=== PATIENT | female | born 1955 | race Caucasian/White ===

== ENCOUNTER 2019-12-20 10:44 | Outpatient (CLI) | payer MEDICAID, SELFPAY ==
[2019-12-20 11:36] LABS: Free T4 Free Thyroxine 1.15 ng/dL (0.82-1.77)
[2019-12-24 00:02] LABS: Tissue Transglutaminase IgA Ab <1 U/mL; Tissue transglutaminase Ab.IgG 2 U/mL
[2019-12-25 05:57] LABS: Immunoglobulin A 275 mg/dL (70-320)
[2019-12-26 22:32] LABS: Gliadin Ab.IgA 10 U (<20); Gliadin Ab.IgG 3 U (<20)
== END 2019-12-20 10:45 | disposition home or self-care (01) ==
LOC: LAB 10:45
PROVIDERS: Visit Provider Internal Medicine
DX: E03.9 Hypothyroidism, unspecified (principal); E11.9 Type 2 diabetes mellitus without complications; E66.01 Morbid (severe) obesity due to excess calories; Z68.42 Body mass index [BMI] 45.0-49.9, adult; K90.9 Intestinal malabsorption, unspecified
CPT/HCPCS: 82784; 83516; 84439; 99204

== ENCOUNTER → 2020-02-19 13:18 | Outpatient (BNVA) | payer MEDICAID, SELFPAY | PROVIDERS: Visit Provider Internal Medicine | DX: E03.9 Hypothyroidism, unspecified (principal); E11.9 Type 2 diabetes mellitus without complications; E66.01 Morbid (severe) obesity due to excess calories; Z68.42 Body mass index [BMI] 45.0-49.9, adult; E78.5 Hyperlipidemia, unspecified | CPT/HCPCS: 99214 ==

== ENCOUNTER 2020-02-19 14:02 | Outpatient (CLI) | payer MEDICAID, SELFPAY ==
[2020-02-19 15:32] LABS: Chol HDL Ratio 5.05 mg/dL (0.0-4.40); Cholesterol 222 mg/dL (0-200); Free T4 Free Thyroxine 0.64 ng/dL (0.82-1.77); HDL Cholesterol 44 mg/dL (60-100); LDL Cholesterol Calculated 130 mg/dL (50-129); LDL HDL Ratio 2.95 RATIO (0.00-3.22); Triglycerides 239 mg/dL (0-150)
[2020-02-19 16:40] LABS: Estmated Average Glucose 128; Hemoglobin A1C 6.1 % (4.0-6.0)
== END 2020-02-19 14:03 | disposition home or self-care (01) ==
LOC: LAB 14:06
PROVIDERS: PCP Family Medicine; Visit Provider Internal Medicine
DX: E11.9 Type 2 diabetes mellitus without complications (principal); E03.9 Hypothyroidism, unspecified; E78.5 Hyperlipidemia, unspecified
CPT/HCPCS: 36415; 80061; 83036; 84439; 84443

== ENCOUNTER → 2020-03-14 10:07 | Outpatient (BNVA) | payer MEDICAID, SELFPAY | PROVIDERS: PCP Family Medicine; Visit Provider Internal Medicine | DX: Z20.828 Contact with and (suspected) exposure to other viral communicable diseases (principal); Z01.818 Encounter for other preprocedural examination | CPT/HCPCS: 87635 ==

== ENCOUNTER 2020-03-21 08:40 | Day surgery (SDC) | payer MEDICAID, SELFPAY ==
[2020-03-19 14:14] VITALS: BMI 49.9
[2020-03-21 09:09] VITALS: BP 173/105; PULSE 86; RESP 18; TEMP 36.3; O2SAT 99
--- NOTE | 2020-03-21 09:18 | W.PM.OPSUD ---
Surgery/Procedure H&P Update DATE OF PROCEDURE: March 21, 2020 DATE H&P PERFORMED: 03/10/20 PLANNED PROCEDURE: Operation Date: 03/21/20 09:00 Proposed Procedures p EGD 66464 K21.9(Not Applicable) - Alfonso Henriquez MD
[2020-03-21] MEDS: sodium chloride 0.9% 1,000 ML 30 ML IV (09:28)
--- NOTE | 2020-03-21 10:10 | ANES.PREANE2 ---
Pre-Anesthetic Assessment Pre-Anesthetic Assessment: Height/Weight: Height 1.6 m Weight 127.913 kg Temp Pulse Resp BP Pulse Ox 97.3 F L 86 18 173/105 99 03/21/20 09:09 03/21/20 09:09 03/21/20 09:09 03/21/20 09:09 03/21/20 09:09 Preop Diagnosis: GERD Proposed Procedure: Operation Date: 03/21/20 09:00 Proposed Procedures p EGD 85342 K21.9(Not Applicable) - Alfonso Henriquez MD Last intake: Intake Last Liquid Date 03/20/20 Last Liquid Time 20:30 Last Solid Date 03/20/20 Last Solid Time 15:30 Exam: Pre-Anes Outpt Exam: alert and oriented x 3 Airway: Submandibular: WNL Cervical ROM: WNL Dentition: Full Pulmonary: Pulmonary: None reported CV/HEM: CV/HEM: Arrythmia Comments: patient states irregular heart rhythm intermittently 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 : : None reported Hepatic: Hepatic: None reported GI: GI: GERD and Hiatus hernia Metabolic: Metabolic: DM Comments: PRE-DIABETIC Musc/skel: Musc/skel: None reported Neuropsych: Neuropsych: Seizure Comments: patient states she has had seizures in the past describes it as absent seizures doesnt remember the last seizure she has had. Denies taking medication for seizure activity. Anesthetic Plan: ASA status: 3 Anesthesia: Anesthesia Evaluation and MAC Risk of > 500 ml blood loss (7ml/kg in children): No Meds/Allergies Current Medications: Current Medications Generic Name Dose Route Start Last Admin Trade Name Freq PRN Reason Stop Dose Admin Sodium Chloride 1,000 mls @ 30 ml s/hr 03/21/20 09:00 03/21/20 09:28 Sodium Chloride 0.9% IV 03/22/20 08:59 30 mls/hr .Q24H DONITA Administration PFSH Anesthesia PFSH: Medical History (Updated 03/10/20 @ 15:27 by Alfonso Henriquez MD) Anxiety Depression History of goiter History of pulmonary embolism PE in 2014. Hypertension Hypothyroidism PTSD (post-traumatic stress disorder) Surgical History H/O thyroidectomy H/O tubal ligation History of cholecystectomy Hx of appendectomy Family History Father CAD (coronary artery disease) Cancer prostate Mother CAD (coronary artery disease) Diabetes Sister Cancer Brother Diabetes Social History (Updated 03/10/20 @ 15:[address]) Smoking and tobacco status: never smoked Alcohol intake: never History of recent travel: No Data Anesthesia Cardiac Studies: No Data to Display
[2020-03-21 10:27] VITALS: BP 149/101; PULSE 69; RESP 16; TEMP 36.2; O2SAT 96
--- NOTE | 2020-03-21 10:36 | ANE.PACU2 ---
Inpatient post-anesthesia follow up: Airway intact: Yes Vital signs: Temperature 97.1 F Pulse Rate 69 Respiratory Rate 16 Blood Pressure 149/101 Pulse Oximetry 96 Oxygen Delivery Me thod Room Air Oxygen Flow Rate Fraction of Inspir ed Oxygen Hydration adequate: Yes Nausea and vomiting: No Mental status: Baseline
[2020-03-21 10:45] VITALS: BP 135/75; PULSE 73; RESP 16; O2SAT 99
[2020-03-24 09:24] LABS: H. Pylori / CLO Test Negative
== END 2020-03-21 11:00 | disposition home or self-care (01) ==
PROVIDERS: PCP Family Medicine; Visit Provider Internal Medicine
PROC: 0DJ08ZZ Inspection of Upper Intestinal Tract, Via Natural or Artificial Opening Endoscopic (ICD-10-PCS; CPT 43235; principal; 2020-03-21 09:00)
DX: K21.9 Gastro-esophageal reflux disease without esophagitis (principal); K44.9 Diaphragmatic hernia without obstruction or gangrene; K29.70 Gastritis, unspecified, without bleeding; Z86.711 Personal history of pulmonary embolism; F41.9 Anxiety disorder, unspecified; F32.9 Major depressive disorder, single episode, unspecified; I10 Essential (primary) hypertension; E03.9 Hypothyroidism, unspecified; E11.9 Type 2 diabetes mellitus without complications
CPT/HCPCS: 12345; 43239; 87077; J7030

== ENCOUNTER → 2020-06-04 08:36 | Outpatient (BNVA) | payer MEDICAID, SELFPAY | PROVIDERS: PCP Family Medicine; Referring Provider Nurse Practitioner Family; Visit Provider Internal Medicine | DX: E03.9 Hypothyroidism, unspecified (principal); E11.9 Type 2 diabetes mellitus without complications; E66.01 Morbid (severe) obesity due to excess calories; Z68.42 Body mass index [BMI] 45.0-49.9, adult; E78.5 Hyperlipidemia, unspecified; K44.9 Diaphragmatic hernia without obstruction or gangrene | CPT/HCPCS: 99214 ==

== ENCOUNTER 2020-07-09 09:04 | Outpatient (CLI) | payer MEDICAID, SELFPAY ==
--- NOTE | 2020-07-09 09:38 | FL_ITS ---
WS: [id number] DOUBLE CONTRAST UPPER GI EXAMINATION HISTORY: K21.9 - Gastro-esophageal reflux disease without esophagitis COMPARISON: None available. FLUOROSCOPY TIME: 2.3 minutes. Barium mixture traversed normally throughout the esophagus. No filling defects within the stomach. Du odenal bulb was normally distensible and pliable. No gastroesophageal reflux. Moderate size hiatal hernia was visualized with the patient supine. No reflux was demonstrated. FL/FL upper GI w air* [id number] IMPRESSION: Moderate sized reducible hiatal hernia demonstrated during supine position.
== END 2020-07-09 09:05 | disposition home or self-care (01) ==
LOC: RADWPI 09:05
PROVIDERS: PCP Family Medicine; Visit Provider Surgery
DX: K21.9 Gastro-esophageal reflux disease without esophagitis (principal); K44.9 Diaphragmatic hernia without obstruction or gangrene
CPT/HCPCS: 74246

== ENCOUNTER → 2021-01-05 11:03 | Outpatient (BNVA) | payer MEDICAID, SELFPAY | PROVIDERS: PCP Family Medicine; Referring Provider Nurse Practitioner Family; Visit Provider Internal Medicine Cardiovascular Disease | DX: I50.33 Acute on chronic diastolic (congestive) heart failure (principal); R06.02 Shortness of breath; Z79.01 Long term (current) use of anticoagulants; I10 Essential (primary) hypertension; E78.5 Hyperlipidemia, unspecified; E11.9 Type 2 diabetes mellitus without complications; E03.9 Hypothyroidism, unspecified; E66.01 Morbid (severe) obesity due to excess calories; Z68.42 Body mass index [BMI] 45.0-49.9, adult; Z86.711 Personal history of pulmonary embolism | CPT/HCPCS: 80048; 83880; 85025 ==

== ENCOUNTER 2021-04-06 08:35 | Emergency (ER) | payer MEDICAID, SELFPAY ==
[2021-04-06 08:36] VITALS: BP 99/72; PULSE 93; RESP 18; TEMP 37.1; O2SAT 96; BMI 46.9
[2021-04-06 08:42] VITALS: BP 99/72; PULSE 93; RESP 18; TEMP 37.1; O2SAT 96
--- NOTE | 2021-04-06 08:42 | XRR_ITS ---
PROCEDURE INFORMATION: Exam: XR Chest Exam date and time: 04/06/2021 8:42 AM Age: 66 years old Clinical indication: Angina pectoris; Patient HX: Chest pain since this morning. Sharp pains to the right of the sternum. PT states that even when she lifts her arm it causes the pain to increase TECHNIQUE: Imaging protocol: XR of the chest. Views: 1 view. COMPARISON: RF FL upper GI w air* [id number] 07/09/2020 9:42 AM FINDINGS: Lungs: Unremarkable. No consolidation. Pleural spaces: Unremarkable. No pleural effusion. No pneumothorax. Heart/Mediastinum: Unremarkable. No cardiomegaly. Bones/joints: Unremarkable. XR/XR chest 1V portable [id number] IMPRESSION: No acute findings.
--- NOTE | 2021-04-06 08:42 | ECG_ITS ---
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 Measurements Intervals [place] Rate: 86 P: 55 GA: 171 QRS: 19 QRSD: 100 T: 54 QT: 354 QTc: 426 Interpretive Statements SINUS RHYTHM LOW QRS VOLTAGE IN PRECORDIAL LEADS [QRS DEFLECTION < 1.0 mV IN CHEST LEADS] POSSIBLE RIGHT VENTRICULAR CONDUCTION DELAY [RSR (QR) IN V1/V2] No previous ECG available for comparison Electronically Signed On 04-06-2021 20:51:46 CONTAINER REPAIRER by Loreta Rider M.D. [id number]
[2021-04-06 08:57] LABS: Basophils % 0.2 %; Eosinophils # 0.1 10^3/uL (0.0-0.8); Eosinophils % 0.8 %; Hematocrit 37.5 % (37.0-47.0); Hemoglobin 11.8 g/dL (11.5-15.3); Lymphocytes # 2.2 10^3/uL (0.8-4.8); Lymphocytes % 24.1 %; Mean Corpuscular HGB Conc 31.5 g/dL (30.0-36.0); Mean Corpuscular Hemoglobin 28.8 pg (28.0-34.0); Mean Corpuscular Volume 91.5 fl (81-99); Mean Platelet Volume 11.8 fL (7.4-10.4); Monocytes # 0.5 10^3/uL (0.2-0.9); Monocytes % 5.9 %; Neutrophils % 68.4 %; Nucleated Red Blood Cells % 0 %; Platelet Count 326 10^3/cmm (130-400); Red Cell Distribution Width 14.2 % (12.1-15.1); White Blood Count 9.1 10^3/uL (4.0-10.0)
[2021-04-06 09:19] LABS: Alanine Aminotransferase 13 U/L (0-33); Albumin Level 3.9 g/dL (3.5-5.2); Alkaline Phosphatase 44 IU/L (35-105); Aspartate Amino Transferase 19 U/L (0-32); Blood Urea Nitrogen 16 mg/dL (8-23); Calcium 9.1 mg/dL (8.5-10.5); Carbon Dioxide 22 mmol/L (22-29); Chloride 102 mmol/L (98-107); Creatine Phosphokinase 34 U/L (26-192); Globulin 2.8 g/dL (1.3-4.6); Glomerular Filtration Rate 62.8 mL/min (90-130); Glucose 160 mg/dL (65-115); Osmolality Calculated 293 mOsm/kg (285-295); Sodium 139 mmol/L (136-145); Total Bilirubin 0.4 mg/dL (0.15-1.2); Total Protein 6.7 g/dL (6.6-8.7)
[2021-04-06 09:21] LABS: Anion Gap 19.4 (5-19); Potassium 4.4 mmol/L (3.5-5.1)
[2021-04-06 09:22] LABS: Troponin(5th) Baseline 8 ng/L (0-10)
[2021-04-06 09:24] VITALS: BP 104/83; PULSE 86; PULSE 88; RESP 20; O2SAT 96
--- NOTE | 2021-04-06 09:29 | ED_ITS ---
HPI - Chest Pain General: Chief Complaint: Chest Pain Stated Complaint: CHEST PAIN Time Seen by Provider: 04/06/21 08:36 History of Present Illness: HPI narrative: 66-year-old female presents emergency room complaining of right-sided chest pain that woke her up from sleep this morning. She is not had any difficulty with breathing. She has no known history of heart disease does have history of hypertension she describes it sounds like she may have had some heart failure in the past although she states she never had any bypass or stenting. Began around 6:00 this morning the right breast does not really radiate anywhere. It is very reproducible with palpation even just to auscultation on her chest reproduces the pain. She does have a history of DVT PE she is currently taking Xarelto has not missed any doses change medicines or run out of her medications lately. Pharmacy review with the her refills and talking to the patient it becomes apparent that she is not regularly taking her Xarelto. It has not been refilled since November and she has 15 tablets left in her bottle. MD complaint: chest pain Pertinent past history: other (Previous DVT/PE) Onset (ago): day(s) Timing of current episode: episodic Prior episodes: Yes Onset: during rest Pain location: left chest Pain radiation: none Severity: mild Quality: aching and heaviness Relieving factors: nothing Exacerbating factors: nothing Associated symptoms: Deny abdominal pain, diaphoresis, dyspnea, fever(s), leg edema, nausea, palpitations, sense of impending doom, syncope or vomiting Treatment prior to arrival: none Review of Systems Const: Denies: fever(s) or diaphoresis ENMT: Denies: throat pain, ear or mastoid pain, nasal discharge or nasal congestion Card: Denies: palpitations or syncope Resp: Denies: dyspnea GI: Denies: abdominal pain, nausea or vomiting : Denies: flank pain, difficulty voiding, dysuria, urinary frequency or urinary urgency Skin/Breast: Denies: rash or pruritus PFSH ED PFSH: Medical History Anxiety Benign hypertension CKD (chronic kidney disease) Depression History of goiter History of pulmonary embolism PE in 2014. Hypertension Hypothyroidism PTSD (post-traumatic stress disorder) Surgical History H/O thyroidectomy H/O tubal ligation History of cholecystectomy Hx of appendectomy Family History Father CAD (coronary artery disease) Cancer prostate Diabetes Mother CAD (coronary artery disease) Diabetes Stroke Sister Cancer CAD (coronary artery disease) Brother Diabetes CAD (coronary artery disease) Denies family history of Clotting disorder Dementia Chronic kidney disease (CKD) Suicide Anesthesia complication Bleeding disorder Lung disease Social History Smoking and tobacco status: never smoked Alcohol intake: never History of recent travel: No Physical Exam Const: COMMON NORMALS: no acute distress GENERAL APPEARANCE: cooperative and comfortable ORIENTATION/CONSCIOUSNESS: Yes awake, Yes oriented to person, Yes oriented to place and Yes oriented to time HENMT: COMMON NORMALS: normocephalic, atraumatic and hearing grossly normal bilaterally HEAD & SCALP: normocephalic and atraumatic Neck/C-Spine: COMMON NORMALS: no JVD Chest: OTHER: chest [ain reproducible by palpation Resp: COMMON NORMALS: normal respiratory effort, No retractions, No use of accessory muscles and clear to auscultation bilaterally AUSCULTATION: clear to auscultation bilaterally Cardio: COMMON NORMALS: no JVD, regular rate, regular rhythm and No murmurs present (Cardio) RATE: regular rate RHYTHM: regular rhythm GI: COMMON NORMALS: Soft to palpation and No hepatosplenomegaly present A USCULTATION: Yes normoactive bowel sounds PALPATION: Yes Soft to palpation, No Tenderness to palpation present (GI), No Guarding due to palpation present (GI) and Yes No hepatosplenomegaly present Extremity: COMMON NORMALS: normal to inspection, capillary refill normal, no clubbing, cyanosis or edema, no calf tenderness and no pedal edema Neuro: SENSORIUM/ORIENTATION: Yes oriented to person, Yes oriented to place and Yes oriented to time Skin: COMMON NORMALS: no rashes or lesions noted GENERAL SKIN EXAM: no rashes or lesions noted Course Vital Signs: Vital signs: Vital Signs Temperature 98.7 F 04/06/21 08:42 Pulse Rate 91 04/06/21 13:06 Respiratory Rate 14 04/06/21 13:06 Blood Pressure 143/90 04/06/21 13:06 Pulse Oximetry 98 04/06/21 13:06 MDM - Chest Pain MDM Narrative: Medical decision making narrative: Labs imaging and EKG reviewed on the chart. We did CTA her chest was concerned because pharmacy did review of her medicines [facility] had not been filling her anticoagulant since November 2020. Reviewed this whether endorsed the importance of taking the medicine regularly we will discharge her home diclofenac to use as needed follow-up with primary care doctor return if she has any worsening or change symptoms Lab Data: Labs: Lab Results 04/06/21 04/06/21 04/06/21 08:44 08:44 08:44 WBC 9.1 10^3/uL 10^3/ uL (4.0-10.0) RBC 4.10 10^6/uL 10^6 /uL (4.1-5.3) Hgb 11.8 g/dL g/dL (11.5-15.3) Hct 37.5 % % (37.0-47.0) MCV 91.5 fl fl (81-99) MCH 28.8 pg pg (28.0-34.0) MCHC 31.5 g/dL g/dL (30.0-36.0) RDW 14.2 % % (12.1-15.1) Plt Count 326 10^3/cmm 10^3 /cmm (130-400) MPV 11.8 fL H fL (7.4-10.4) Neut % (Auto) 68.4 % % Lymph % (Auto) 24.1 % % [place] % (Auto) 5.9 % % Eos % (Auto) 0.8 % % Baso % (Auto) 0.2 % % Neut # (Auto) 6.20 10^3/uL 10^3 /uL (1.8-7.7) Lymph # (Auto) 2.2 10^3/uL 10^3/ uL (0.8-4.8) [place] # (Auto) 0.5 10^3/uL 10^3/ uL (0.2-0.9) Eos # (Auto) 0.1 10^3/uL 10^3/ uL (0.0-0.8) Baso # (Auto) 0.0 10^3/uL 10^3/ uL (0.0-0.1) Nucleated RBC % (a uto) 0 % % Nucleated RBCs # 0.0 /100WBC /100W BC Sodium 139 mmol/L mmol/L (136-145) Potassium 4.4 mmol/L mmol/L (3.5-5.1) Chloride 102 mmol/L mmol/L (98-107) Carbon Dioxide 22 mmol/L mmol/L (22-29) Anion Gap 19.4 H (5-19) BUN 16 mg/dL mg/dL (8-23) Creatinine 0.9 mg/dL mg/dL (0.5-0.9) GFR Calculation 62.8 mL/min L mL/ min (90-130) Glucose 160 mg/dL H mg/dL (65-115) Calculated Osmolal ity 293 mOsm/kg mOsm/ kg (285-295) Calcium 9.1 mg/dL mg/dL (8.5-10.5) Total Bilirubin 0.4 mg/dL mg/dL (0.15-1.2) AST 19 U/L U/L (0-32) ALT 13 U/L U/L (0-33) Alkaline Phosphata se 44 IU/L IU/L (35-105) Creatine Kinase 34 U/L U/L (26-192) Troponin T Baselin e 8 ng/L ng/L (0-10) Troponin T 120 Min [place] Troponin T Total Protein 6.7 g/dL g/dL (6.6-8.7) Albumin 3.9 g/dL g/dL (3.5-5.2) Globulin 2.8 g/dL g/dL (1.3-4.6) 04/06/21 11:05 WBC RBC Hgb Hct MCV MCH MCHC RDW Plt Count MPV Neut % (Auto) Lymph % (Auto) [place] % (Auto) Eos % (Auto) Baso % (Auto) Neut # (Auto) Lymph # (Auto) [place] # (Auto) Eos # (Auto) Baso # (Auto) Nucleated RBC % (a uto) Nucleated RBCs # Sodium Potassium Chloride Carbon Dioxide Anion Gap BUN Creatinine GFR Calculation Glucose Calculated Osmolal ity Calcium Total Bilirubin AST ALT Alkaline Phosphata se Creatine Kinase Troponin T Baselin e Troponin T 120 Min [place] 6.00 ng/L ng/L (0-10) [place] Troponin T -2.00 ABS# L ABS# (0-10) Total Protein Albumin Globulin Discharge Plan Discharge Patient Disposition: Home Clinical Impression: Acute chest wall pain, Hx of deep venous thrombosis Condition: Stable Prescriptions: New diclofenac sodium 75 mg tablet,delayed release (DR/EC) 75 mg PO Q12H PRN (Reason: pain) Qty: 20 RF: 0 No Action loratadine 10 mg capsule 10 mg PO DAILY RF: 0 desvenlafaxine succinate [Pristiq] 100 mg tablet extended release 24 hr 100 mg PO QAM RF: 0 ropinirole 0.5 mg tablet 0.5 mg PO BEDTIME RF: 0 fluticasone propionate 50 mcg/actuation spray,suspension 2 spray INTRANASAL QAM RF: 0 Xarelto 20 mg tablet 20 mg PO QAM RF: 0 topiramate [Topamax] 100 mg tablet 100 mg PO QAM RF: 0 polyethylene glycol 3350 [Miralax] 17 gram powder in packet 17 gm PO QAM RF: 0 atorvastatin [Lipitor] 40 mg tablet 40 mg PO QAM RF: 0 lisinopril 10 mg tablet 10 mg PO QAM RF: 0 hydrochlorothiazide 25 mg tablet 25 mg PO QAM RF: 0 levothyroxine 300 mcg tablet See Rx Instructions .ROUTE .COMPLEX RF: 0 pantoprazole 40 mg tablet,delayed release (DR/EC) 80 mg PO QAM RF: 0 levothyroxine 50 mcg tablet 100 mcg PO .ON SAT AND SUN RF: 0 nystatin 100,000 unit/gram cream 1 applic TOPICAL BID PRN (Reason: Rash) RF: 0 bupropion HCl 75 mg tablet 75 mg PO BID RF: 0 ProAir HFA 90 mcg/actuation Hfa Aerosol Inhaler 2 puff INHALATION QID PRN (Reason: Shortness Of Breath) RF: 0 hydroxyzine pamoate 25 mg capsule 25 mg PO BEDTIME RF: 0 Discharge Orders: Discharge ED (Routine); Ordered 04/06/21 Ordered By: Steffen Mccarthy Referrals: Joyce Robin MD [Primary Care Provider] - Discharge Diet: Usual diet Discharge Activity: Resume usual activity Patient Instructions: Opioid Safety Activity Restrictions/Additional Instructions: Anti-inflammatories for acute anterior chest wall pain. Encourage to take your Xarelto regularly. Coding Level of Care Code ED Lead Machinist for Jimbo Sanchez
--- NOTE | 2021-04-06 09:32 | CT_ITS ---
WS: [id number] CT CHEST ANGIOGRAPHY WITH REFORMATS HISTORY: hx PE, chest pain not taking anticoagulants TECHNIQUE: Contiguous axial images are obtained through the chest during arterial injection of intrav enous contrast. Images are reconstructed to evaluate the pulmonary arteries. MIP imaging also reviewe d. All CT scans at [facility] use at least one of these dose optimization techniques: automat ed exposure control; mA and/or kV adjustment per patient size (includes targeted exams where dose is matched to clinical indication); or iterative reconstruction. CONTRAST: Omnipaque 350; 95 mL IV. DLP: 582.56 mGy.cm COMPARISON: None available. Suboptimal opacification of the pulmonary arteries. No central filling defects. The opacification is heterogeneous due to the bolus compactness. But no emboli are identified. Small emboli beyond the seg mental branches may be obscured. There is no RIGHT heart strain. Normal size pulmonary artery and tho racic aorta. Normal size heart. No pericardial or pleural effusions. No pneumonia or pneumonitis. No mediastinal or hilar adenopathy. Small hiatal hernia. Mild hepatic steatosis. Gallbladder is not identified. May been surgically remov ed or contracted. No history of cholecystectomy provided. Normal adrenal glands. CT/CT angio chest PE protcl [id number] IMPRESSION: 1. Limited evaluation of pulmonary arteries. No emboli identified. No signific ant filling defects through the segmental branches. 2. No RIGHT heart strain. 3. No pneumonia.
[2021-04-06] MEDS: iohexol 350 mg/mL 100 mL Btl IV (09:46)
--- NOTE | 2021-04-06 10:42 | ECG_ITS ---
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 Measurements Intervals [place] Rate: 88 P: 45 ME: 175 QRS: 12 QRSD: 98 T: 48 QT: 344 QTc: 418 Interpretive Statements SINUS RHYTHM LOW QRS VOLTAGE IN PRECORDIAL LEADS [QRS DEFLECTION < 1.0 mV IN CHEST LEADS] POSSIBLE RIGHT VENTRICULAR CONDUCTION DELAY [RSR (QR) IN V1/V2] Compared to ECG 04/06/2021 09:19:32 No significant changes Electronically Signed On 04-06-2021 20:55:54 CERTIFIED PHARMACIST ASSISTANT by Loreta Rider M.D. [id number]
[2021-04-06] MEDS: ketorolac 30 mg/mL INJ IVP (12:08)
[2021-04-06 12:24] VITALS: BP 143/90; PULSE 91; RESP 14; O2SAT 98
[2021-04-06 13:06] VITALS: BP 143/90; PULSE 91; RESP 14; O2SAT 98
== END 2021-04-06 13:11 | disposition home or self-care (01) ==
PROVIDERS: Emergency Provider Family Medicine; PCP Family Medicine
DX: R07.89 Other chest pain (principal); Z86.718 Personal history of other venous thrombosis and embolism; Z86.711 Personal history of pulmonary embolism; I10 Essential (primary) hypertension
CPT/HCPCS: 71045; 71275; 80053; 82550; 84484; 85025; 93005; 96374; 99284; J1885; Q9967

== ENCOUNTER → 2022-08-02 10:12 | Outpatient (BNVA) | payer MEDICAID, SELFPAY | PROVIDERS: PCP Family Medicine; Visit Provider Internal Medicine | DX: E11.9 Type 2 diabetes mellitus without complications (principal); E03.9 Hypothyroidism, unspecified; E07.9 Disorder of thyroid, unspecified; E66.01 Morbid (severe) obesity due to excess calories; Z68.42 Body mass index [BMI] 45.0-49.9, adult; E78.5 Hyperlipidemia, unspecified; Z79.890 Hormone replacement therapy; K25.9 Gastric ulcer, unspecified as acute or chronic, without hemorrhage or perforation | CPT/HCPCS: 99214 ==

== ENCOUNTER → 2022-08-06 09:20 | Outpatient (BNVA) | payer MEDICAID, SELFPAY | PROVIDERS: PCP Family Medicine; Visit Provider Surgery | DX: K21.9 Gastro-esophageal reflux disease without esophagitis (principal) | CPT/HCPCS: 99213 ==

== ENCOUNTER 2022-08-19 08:52 | Day surgery (SDC) | payer MEDICAID, SELFPAY ==
[2022-08-18 10:44] VITALS: BMI 42.8
[2022-08-19 09:13] VITALS: BP 140/109; PULSE 95; RESP 18; TEMP 36.2; O2SAT 98
[2022-08-19] MEDS: sodium chloride 0.9% 1,000 ML 30 ML IV (09:20)
--- NOTE | 2022-08-19 09:55 | ANES.PREANE2 ---
Pre-Anesthetic Assessment Height/Weight: Height 1.6 m Weight 109.769 kg Temp Pulse Resp BP Pulse Ox O2 Del Method 97.2 F L 95 18 140/109 98 Room Air 08/19/22 09:13 08/19/22 09:13 08/19/22 09:13 08/19/22 09:13 08/19/22 09:13 08/19/22 09:13 Preop Diagnosis: Chronic GERD/PUD Operation Date: 08/19/22 10:15 Proposed Procedures p EGD 52163,K21.9(Not Applicable) - Mehdi Bryson DO Familial anesthetic complications: Slow to wake Was Beta Dominguez taken within 24 hours: N/A Was Clonidine taken within 24 hours: N/A Last intake: Intake Last Liquid Date 08/18/22 Last Liquid Time 23:00 Last Solid Date 08/18/22 Last Solid Time 14:30 Social No alcohol and No tobacco Exam alert, oriented x 3, clear to auscultation bilaterally and regular rate & rhythm Airway Submandibular: within normal limits Cervical ROM: within normal limits Mallampati: Class III Dentition: false History/ROS No significant history except as noted and No significant complaints Pulmonary Asthma and Exertional Dyspnea PEs in 2014 put on xarelto: last took on Tuesday CV/HEM Arrythmia, Deep Vein Thrombosis and Hypertension None reported Hepatic None reported GI Gastroesophageal Reflux Disease (None this am, well controlled with meds), Hiatal Hernia and Peptic Ulcer Disease Metabolic Diabetes Mellitus (Pre-diabetic), Hyperlipidemia, Morbid Obesity and Thyroid Disease Musc/skel Lower Back Pain and Osteoarthritis/DJD Neuropsych Anxiety, Depression and Seizure (Epilepsy; last seizure one month ago) Anesthetic Plan ASA status: 3 Anesthesia: Anesthesia Evaluation, General and MAC Risk of > 500 ml blood loss (7ml/kg in children): No Medications/Allergies Home Medications Medication Instructions Recorded Confirmed Last Taken Type atorvastatin 40 mg tablet (Lipitor) 40 mg PO QAM 12/20/19 08/18/22 08/17/22 History desvenlafaxine succinate 100 mg 100 mg PO QAM 12/20/19 08/18/22 08/17/22 History tablet,extended release 24 hr (Pristiq) fluticasone propionate 50 2 spray intranasal QA 12/20/19 08/18/22 08/17/22 History mcg/actuation nasal spray,suspension loratadine 10 mg capsule 10 mg PO DAILY 12/20/19 08/18/22 08/17/22 History polyethylene glycol 3350 17 gram 17 gm PO QAM PRN Constipation 12/20/19 08/19/22 08/17/22 History oral powder packet (Miralax) rivaroxaban 20 mg tablet (Xarelto) 20 mg PO QAM pt states still 12/20/19 08/18/22 08/16/22 History taking pt brought in med bottle dated 11/11/20 30d/s ropinirole 0.5 mg tablet 0.5 mg PO BEDTIME 12/20/19 08/18/22 08/17/22 History topiramate 100 mg tablet (Topamax) 100 mg PO QAM ext med history 12/20/19 08/18/22 08/17/22 History shows last filled 02/03/21 15d/s for 100mg bid hydrochlorothiazide 25 mg tablet 25 mg PO QAM 12/04/20 08/18/22 08/17/22 History lisinopril 10 mg tablet 10 mg PO QAM rx last filled 12/04/20 08/18/22 08/17/22 History 01/21/21 30d/s for 5mg daily albuterol sulfate 90 mcg/actuation 2 puff inhalation QID PRN 04/06/21 08/18/22 08/17/22 History aerosol inhaler (ProAir HFA) Shortness Of Breath bupropion HCl 75 mg tablet 75 mg PO BID pt states takes 75mg 04/06/21 08/18/22 08/17/22 History bid filled 03/09/21 30d/s pt brought in bottle dated 02/06/21 for sr 150mg daily but states she doesnt take the 150mg diclofenac sodium 75 mg 75 mg PO Q12H PRN pain #20 tabs 04/06/21 08/18/22 08/17/22 Rx tablet,delayed release hydroxyzine pamoate 25 mg capsule 25 mg PO BEDTIME rx filled on 04/06/21 08/18/22 08/17/22 History 12/12/20 30d/s for 25mg tid prn nystatin 100,000 unit/gram topical 1 applic topical BID PRN Rash 04/06/21 08/18/22 08/17/22 History cream esomeprazole magnesium 20 mg 20 mg PO DAILY 08/02/22 08/18/22 08/17/22 History capsule,delayed release (Nexium) famotidine 20 mg tablet 20 mg PO DAILY 08/02/22 08/18/22 08/17/22 History venlafaxine 150 mg tablet,extended 150 mg PO DAILY 08/02/22 08/18/22 08/17/22 History release 24 hr levothyroxine 300 mcg tablet 300 mcg PO DAILY 08/18/22 08/18/22 08/17/22 History Allergies Allergy/AdvReac Type Severity Reaction Status Date / Time escitalopram [From Lexapro] Allergy ALGY-Rash Verified 08/19/22 09:05 hydrocodone Allergy ADR-Itching Verified 08/19/22 09:05 [From Lorcet (hydrocodone)] montelukast [From Singulair] Allergy ADR-Itching Verified 08/19/22 09:05 Current Medications Generic Name Dose Route Start Last Admin Trade Name Freq PRN Reason Stop Dose Admin Sodium Chloride 1,000 mls @ 30 mls/hr 08/19/22 09:00 08/19/22 09:20 Sodium Chloride 0.9% IV 08/20/22 08:59 30 mls/hr .Q24H DONITA Administration PFSH Anesthesia Medical History Afib Anxiety Benign hypertension CKD (chronic kidney disease) Depression History of goiter History of pulmonary embolism PE in 2014. HLD (hyperlipidemia) Hypertension Hypothyroidism PTSD (post-traumatic stress disorder) Surgical History H/O thyroidectomy H/O tubal ligation History of cholecystectomy Hx of appendectomy Family History Father CAD (coronary artery disease) Cancer prostate Diabetes Mother CAD (coronary artery disease) Diabetes Stroke Sister Cancer CAD (coronary artery disease) Brother Diabetes CAD (coronary artery disease) Denies family history of Clotting disorder Dementia Chronic kidney disease (CKD) Suicide Anesthesia complication Bleeding disorder Lung disease Social History Smoking and tobacco status: never smoked Alcohol intake: never Substance/Drug Use: never Data Anesthesia Cardiac Studies: No Data to Display
--- NOTE | 2022-08-19 10:08 | W.PM.OPSUD ---
Surgery/Procedure H&P Update DATE OF PROCEDURE: August 19, 2022 DATE H&P PERFORMED: 08/06/22 H&P UPDATE INFORMATION: I have reviewed H&P completed within last 30 days, I have examined patient prior to procedure and No changes to prior documentation PREOP DIAGNOSIS: Chronic GERD/PUD PLANNED PROCEDURE: Operation Date: 08/19/22 10:15 Proposed Procedures p EGD 37399,K21.9(Not Applicable) - Mehdi Bryson DO
[2022-08-19 10:32] VITALS: BP 104/76; PULSE 84; RESP 14; TEMP 36.2; O2SAT 97
[2022-08-19 10:43] VITALS: BP 107/73; PULSE 80; RESP 18; O2SAT 96
--- NOTE | 2022-08-19 17:20 | ANE.PACU2 ---
Inpatient post-anesthesia follow up: Airway intact: Yes Vital signs: Temperature 97.2 F Pulse Rate 80 Respiratory Rate 18 Blood Pressure 107/73 Pulse Oximetry 96 Oxygen Delivery Me thod Room Air Oxygen Flow Rate Fraction of Inspir ed Oxygen Hydration adequate: Yes Nausea and vomiting: No Pain level: 1 Mental status: Baseline
== END 2022-08-19 11:00 | disposition home or self-care (01) ==
PROVIDERS: PCP Family Medicine; Visit Provider Surgery
PROC: 0DJ08ZZ Inspection of Upper Intestinal Tract, Via Natural or Artificial Opening Endoscopic (ICD-10-PCS; CPT 43235; principal; 2022-08-19 10:15)
DX: K21.9 Gastro-esophageal reflux disease without esophagitis (principal); J45.909 Unspecified asthma, uncomplicated; Z86.711 Personal history of pulmonary embolism; Z79.01 Long term (current) use of anticoagulants; E78.5 Hyperlipidemia, unspecified; E66.01 Morbid (severe) obesity due to excess calories; Z68.41 Body mass index [BMI] 40.0-44.9, adult; E03.9 Hypothyroidism, unspecified; F41.9 Anxiety disorder, unspecified; F32.A Depression, unspecified; G40.909 Epilepsy, unspecified, not intractable, without status epilepticus; I48.91 Unspecified atrial fibrillation; N18.9 Chronic kidney disease, unspecified; I12.9 Hypertensive chronic kidney disease with stage 1 through stage 4 chronic kidney disease, or unspecified chronic kidney disease; K44.9 Diaphragmatic hernia without obstruction or gangrene
CPT/HCPCS: 43239; 88305; J7030

== ENCOUNTER → 2022-09-30 16:05 | Outpatient (BNVA) | payer MEDICAID, SELFPAY | PROVIDERS: PCP Family Medicine; Visit Provider Surgery | DX: Z09 Encounter for follow-up examination after completed treatment for conditions other than malignant neoplasm (principal) | CPT/HCPCS: 99212 ==

== ENCOUNTER 2022-10-20 08:35 | Outpatient (CLI) | payer MEDICAID, SELFPAY ==
--- NOTE | 2022-10-20 09:15 | FL_ITS ---
WS: [id number] Exam: FL barium swallow [id number] Date/Time of Exam: 10/20/2022 9:10 AM Comparison 07/09/2020 Reason For Exam: CHRONIC GERD Swallowing function at the level of the oropharynx was normal. There was no evidence of esophageal st ricture or mass. Normal esophageal motility. The esophagus was not displaced. No gastroesophageal re flux observed during fluoroscopy. Previously noted small hiatal hernia not definitely demonstrated on today's exam. FL/FL barium swallow [id number] IMPRESSION: 1. No sign of esophageal stricture or mass. 2. No reflux. No obvious hiatal hernia on today's exam. Fluoroscopy time: 2min [id number] minutes # of spot films:
== END 2022-10-20 08:36 | disposition home or self-care (01) ==
PROVIDERS: PCP Family Medicine; Visit Provider Surgery
DX: K21.9 Gastro-esophageal reflux disease without esophagitis (principal)
CPT/HCPCS: 74220